=== PATIENT | male | born 1935 | race Caucasian/White ===

== ENCOUNTER → 2016-09-11 | Outpatient (CLI) | payer MEDICARE, OTHER | LOC: MW.CHIM 08:00 | CPT/HCPCS: 99214 ==

== ENCOUNTER → 2016-10-13 | Outpatient (CLI) | payer MEDICARE, OTHER ==
[2016-10-13 08:48] LABS: CHLORIDE,CL 107 mmol/L (98-110); SODIUM,NA 141 mmol/L (136-146)
== END | disposition home or self-care (01) ==
LOC: MW.CHFP 07:36
PROVIDERS: ATTEND Emergency Medicine
DX: I10 Essential (primary) hypertension (principal); I25.10 Atherosclerotic heart disease of native coronary artery without angina pectoris; E11.9 Type 2 diabetes mellitus without complications; E87.6 Hypokalemia; Z91.89 Other specified personal risk factors, not elsewhere classified; Z23 Encounter for immunization
CPT/HCPCS: 36415; 80053; 80061; 82044; 83036; 85027; 90732; 99214; G0009

== ENCOUNTER 2023-05-11 07:00 | Day surgery (SDC) | payer MEDICARE, OTHER ==
[~2023-05-11 07:00] MED LIST: Lactated Ringers 1,000 ML IV SCH
[2023-05-11] MEDS ORDERED: propofoL 50 ML ONE (07:33)
[2023-05-11] MEDS ORDERED: Phenylephrine HCl 0.5 MG/5 ML AMP ONE ×2 (09:01→09:18)
[2023-05-11] MEDS ORDERED: Propofol 200 MG/20 ML SDV ONE (09:08)
[2023-05-11 13:24] VITALS: BP 112/67; PULSE 63
== END 2023-05-11 10:40 | disposition home or self-care (01) ==
LOC: MW.SDS 07:00
PROVIDERS: ATTEND Surgery
DX: D64.9 Anemia, unspecified (principal); K29.50 Unspecified chronic gastritis without bleeding; K31.7 Polyp of stomach and duodenum; K44.9 Diaphragmatic hernia without obstruction or gangrene; D12.6 Benign neoplasm of colon, unspecified; D12.8 Benign neoplasm of rectum; K64.8 Other hemorrhoids; G89.29 Other chronic pain; E11.9 Type 2 diabetes mellitus without complications; K21.9 Gastro-esophageal reflux disease without esophagitis; I10 Essential (primary) hypertension; I48.0 Paroxysmal atrial fibrillation; I25.10 Atherosclerotic heart disease of native coronary artery without angina pectoris; Z95.0 Presence of cardiac pacemaker; Z79.01 Long term (current) use of anticoagulants; Z79.84 Long term (current) use of oral hypoglycemic drugs; Z79.899 Other long term (current) drug therapy
CPT/HCPCS: 43239; 45380; 82947; J2371; J2704; J7120; 00813; 99100